=== PATIENT | female | born 1945 | race Caucasian/White ===

== ENCOUNTER 2017-08-19 12:04 | Emergency (ER) | payer OTHER ==
[~2017-08-19] VITALS: Ht 149.9 cm; Wt 65.8 kg
[2017-08-19] MEDS ORDERED: ATORVASTATIN CA40 MG (12:29)
[2017-08-19] MEDS ORDERED: AZITHROMYCIN250 MG (12:30)
[2017-08-19] MEDS ORDERED: FENOFIBRATE145 MG (12:31)
[2017-08-19] MEDS ORDERED: METFORMIN HCL500 MG (12:31)
[2017-08-19] MEDS ORDERED: ALBUTEROL2.5 MG/3 M (12:36)
== END 2017-08-19 17:56 | disposition home or self-care (01) ==
LOC: ER 12:04
DX: B34.9 Viral infection, unspecified (principal)

== ENCOUNTER 2017-08-30 13:19 | Emergency (ER) | payer OTHER ==
[~2017-08-30] VITALS: Ht 144.8 cm; Wt 64.9 kg
[~2017-08-30 13:19] MED LIST: ALBUTEROL2.5 MG/3 M; ATORVASTATIN CA40 MG; AZITHROMYCIN250 MG; FENOFIBRATE145 MG; METFORMIN HCL500 MG
[2017-08-30] MEDS ORDERED: PREDNISOLO15 MG/5 ML (13:58)
[2017-08-30] MEDS ORDERED: ZANTAC300 MG (13:59)
== END 2017-08-30 16:30 | disposition home or self-care (01) ==
LOC: ER 13:19
DX: K29.60 Other gastritis without bleeding (principal); K29.80 Duodenitis without bleeding

== ENCOUNTER 2021-06-27 22:07 | Emergency (ER) | payer OTHER ==
[~2021-06-27] VITALS: Ht 149.9 cm; Wt 68.0 kg
[~2021-06-27 22:07] MED LIST changes: +PREDNISOLO15 MG/5 ML; +ZANTAC300 MG
[2021-06-28] MEDS ORDERED: KETO10TA2 PO (05:05)
== END 2021-06-28 11:41 | disposition home or self-care (01) ==
LOC: ER 22:07
DX: M25.562 Pain in left knee (principal)